=== PATIENT | male | born 1950 | race African-American/Black ===

== ENCOUNTER 2016-10-19 22:33 | Emergency (ER) | payer OTHER, MEDICAID ==
[~2016-10-19] VITALS: Ht 172.7 cm; Wt 68.0 kg
[2016-10-19] MEDS ORDERED: LORAZEPAM 2MG/ML CPJ IV STA (23:20)
[2016-10-19 23:46] LABS: BASOPHILS % 0.3 % (0.0-2.0); EOSINOPHILS % 0.1 % (0.0-5.0); HEMATOCRIT. 33.1 % (42.0-52.0); HEMOGLOBIN. 10.9 g/dL (14.0-18.0); LYMPHOCYTES % 22.1 % (20.0-50.0); MEAN CORPUSCULAR HGB CONC 32.8 g/dL (31.0-37.0); MEAN CORPUSCULAR VOLUME 85.4 fL (80.0-94.0); MEAN PLATELET VOLUME 8.3 fl (7.4-10.4); MONOCYTES % 4.1 % (2.0-8.0); NEUTROPHILS % 73.4 % (40.0-76.0); PLATELET 213 x1000/uL (130-400); RED BLOOD CELL COUNT 3.88 mill/uL (4.7-6.1); RED CELL DISTRIBUTION WIDTH 16.5 % (11.6-14.6); WHITE BLOOD COUNT 7.6 x1000/uL (4.5-11.0)
[2016-10-19] MEDS ORDERED: SODIUM CHLORIDE 0.9% 1,000 ML IV ONE (23:47)
[2016-10-19 23:50] LABS: CHLORIDE 108 mEq/L (98-107); INDEX HEMOLYSI 1 (1-3); INDEX ICTERIC 1 (1-4); INDEX LIPEMIC 1 (1-3)
[2016-10-19 23:54] LABS: ALBUMIN 3.7 g/dL (3.4-5.0); ANION GAP 15; CALCIUM 8.7 mg/dL (8.5-10.1); CARBON DIOXIDE 26 mEq/L (21-32); UREA NITROGEN BLOOD 20 mg/dL (7-21)
[2016-10-20] LABS: ACETAMINOPHEN < 2 ug/mL (10-30); ALANINE AMINOTRANSFERASE 31 IU/L (13-61); eGFR > 60 mL/min (>60)
[2016-10-20 00:11] LABS: ETHANOL BLOOD 346 mg/dL
[2016-10-20] MEDS ORDERED: LORAZEPAM 2MG/ML CPJ IV ONE (01:00)
[2016-10-20] MEDS ORDERED: PIPERACILLIN/TAZOBACTAM 3.375GM/50ML PREMIX IV ONE (06:45)
[2016-10-20] MEDS ORDERED: PIPERACILLIN/TAZ 3.375G PREMIX 50 ML IV NR (06:52)
[2016-10-20 11:40] VITALS: BP 140/90
== END 2016-10-20 11:44 | disposition short-term general hospital (02) ==
LOC: ER 22:50
DX: S91.312A Laceration without foreign body, left foot, initial encounter (principal); X58.XXXA Exposure to other specified factors, initial encounter; Y93.89 Activity, other specified; Y99.8 Other external cause status; Y92.89 Other specified places as the place of occurrence of the external cause
CPT/HCPCS: 36415; 73610; 73630; 80053; 80307; 80329; 85025; 96361; 96365; 96366; 96375; 99285; G0482; J2060; J2543; J7030

== ENCOUNTER 2025-04-11 20:47 | Emergency (ER) | payer MEDICARE, MEDICAID ==
[~2025-04-11] VITALS: Ht 172.7 cm; Wt 69.0 kg
[2025-04-11 20:49] VITALS: O2SAT 97
[2025-04-11] MEDS: SODIUM CHLORIDE 0.9% 1,000 ML IV ONE ×2 (21:28→22:57)
[2025-04-11 21:38] LABS: BASOPHILS % 0.2 % (0.0-2.0); EOSINOPHILS % 0.0 % (0.0-5.0); HEMATOCRIT. 40.0 % (42.0-52.0); HEMOGLOBIN. 12.9 g/dL (14.0-18.0); LYMPHOCYTES % 8.4 % (20.0-50.0); MEAN PLATELET VOLUME 9.4 fl (7.4-10.4); MONOCYTES % 5.1 % (2.0-8.0); NEUTROPHILS % 86.3 % (40.0-76.0); PLATELET 189 x1000/uL (130-400); RED BLOOD CELL COUNT 4.41 mill/uL (4.7-6.1); RED CELL DISTRIBUTION WIDTH 16.2 % (11.6-14.6)
[2025-04-11 21:57] LABS: CREATININE 2.5 mg/dL (0.6-1.3); ETHANOL BLOOD 238 mg/dL (<10); UREA NITROGEN BLOOD 21 mg/dL (9-23)
[2025-04-11 21:59] LABS: ASPARTATE AMINOTRANSFERASE 36 IU/L (<34); BILIRUBIN DIRECT 0.1 mg/dL (<=3.0); BILIRUBIN TOTAL 0.5 mg/dL (0.1-1.0); PROTEIN TOTAL 6.8 g/dL (6.0-8.3)
[2025-04-12 01:43] VITALS: BP 110/55; PULSE 100; RESP 25; TEMP 36.7; O2SAT 95
== END 2025-04-12 01:51 | disposition home or self-care (01) ==
LOC: ER 20:47
DX: F10.129 Alcohol abuse with intoxication, unspecified (principal); I10 Essential (primary) hypertension; N28.9 Disorder of kidney and ureter, unspecified; E86.0 Dehydration; Y90.7 Blood alcohol level of 200-239 mg/100 ml
CPT/HCPCS: 80076; 80048; 80320; 85025; 36415; 71045; 93005; 96360; 96361; 99285; 82962; J7030; G0480